=== PATIENT | female | born 1930 | race Caucasian/White ===

== ENCOUNTER → 2018-06-11 | Outpatient (CLI) | payer OTHER ==
[~2018-06-11] MED LIST: GADAVIST IV PRN
--- NOTE | 2018-06-15 15:12 | MAMMOGRAPHY REPORT ---
BREAST MRI OF BOTH BREASTS: 06/11/2018 CLINICAL HISTORY: Biopsy-proven right breast cancer diagnosed at an outside institution. COMPARISON: Prior outside mammograms dated 05/11/2018 and 04/21/2018 and 04/17/2018. Breast ultrasound da chelsy 05/11/2018 and 04/23/2018 from [facility]. Technique: The patient was placed prone in a dedicated breast imaging coil. Precontrast axial T1-alexander ghted, axial T2-weighted fat saturation, and axial T1-weighted fat saturation images were obtained. After the administration of 6 mL of Gadavist IV contrast, sequential T1-weighted fat saturation image s were obtained. Subtraction images were obtained of the dynamic contrast enhanced sequences, and 3- D reformations were performed. The [employer] software was used for kinetic analysis. Findings: Right breast: There is mild background parenchymal enhancement. There is clumped non-mass enhancemen t within the right 12:00 breast which demonstrates a mixed kinetic pattern including suspicious washo ut kinetics, measuring approximately 2.2 cm in AP extent. Approximately 12 mm posterior to the clump ed non-mass enhancement is a 4 mm focus of enhancement which also demonstrates suspicious washout kin etics. The total extent of the abnormal enhancement measures approximately 3.6 x 0.7 x 2.8 cm (serie s [id number] image 60 and series 7 image 100). This corresponds with the mammographic asymmetry and assoc iated calcifications and is consistent with the biopsy-proven malignancy. Clip artifact is seen with in the abnormal enhancement related to the biopsy clip. The remainder of the right breast demonstrat es no suspicious enhancing masses or areas of abnormal non-mass enhancement. Left breast: There is mild background parenchymal enhancement. There are no suspicious enhancing mas ses or areas of abnormal non-mass enhancement within the left breast. There are 1-2 mildly prominent right axillary lymph nodes, for which second look ultrasound could be performed to further assess for cortical thickening or other abnormal morphology (series [id number] images 45 and 52). The chest wall structures are negative. There are small bilateral dependent pleural eff usions. The remainder of the visualized extramammary soft tissues are grossly unremarkable. IMPRESSION: ACR BI-RADS CATEGORY 6: KNOWN BIOPSY PROVEN MALIGNANCY 1. Clumped non-mass enhancement in the right 12:00 breast, measuring up to 3.6 cm in total extent. Findings are consistent with the biopsy-proven malignancy. Surgical excision is recommended. 2. No MRI evidence of malignancy in the left breast. 3. One to two mildly prominent right axillary lymph nodes. If further evaluation is desired prior to lumpectomy and sentinel lymph node biopsy, then targeted ultrasound could be performed to assess for cortical thickening or other abnormal morphology. If the lymph nodes appear abnormal morphologicall y, then ultrasound-guided core needle biopsy could be performed at that time (45 minute time slot). Shannon Vazquez M.D. ah/:06/12/2018 16:50:56 Preparer Making Department: surgery specialist, [facility] BI-RADS Code: ACR BI-RADS Category 6: Known Biopsy Proven Malignancy
== END | disposition home or self-care (01) ==
LOC: C.MRI 11:46
PROVIDERS: ATTEND Surgery
DX: C50.911 Malignant neoplasm of unspecified site of right female breast (principal)